=== PATIENT | female | born 1965 | race Caucasian/White ===

== ENCOUNTER 2021-04-07 19:27 | Emergency (ER) | payer BC ==
[2021-04-07 19:31] VITALS: PULSE 72; RESP 18; TEMP 98
[2021-04-07 19:32] VITALS: BP 164/94
--- NOTE | 2021-04-07 19:54 | ED ---
General Adult HPI - General Source: family Mode of arrival: ambulatory Limitations: no limitations <Rachid Michael - Last Filed: 04/07/21 20:06> <Shayla Brian - Last Filed: 04/11/21 14:37> - General Chief complaint: Recheck/Abnormal Lab/Rx Stated complaint: Covid Test Time Seen by Provider: 04/07/21 19:53 - History of Present Illness Initial comments: This a 56-year-old female presents emergency Department chief complaint of needing COVID-19 test. Patient states she is asymptomatic and needs it for travel. Patient denies any chills cough congestion has been diarrhea constipation (Rachid Michael) - Related Data Allergies Allergy/AdvReac Type Severity Reaction Status Date / Time amoxicillin Allergy Rash/Hives Verified 04/07/21 19:31 Review of Systems ROS Other: All systems not noted in ROS Statement are negative. <Rachid Michael - Last Filed: 04/07/21 20:06> ROS Other: All systems not noted in ROS Statement are negative. <Shayla Brian - Last Filed: 04/11/21 14:37> ROS Statement: Those systems with pertinent positive or pertinent negative responses have been documented in the HPI. Past Medical History Past Medical History: No Reported History History of Any Multi-Drug Resistant Organisms: None Reported Past Surgical History: No Surgical Hx Reported Past Psychological History: No Psychological Hx Reported Smoking Status: Never smoker Past Alcohol Use History: None Reported Past Drug Use History: None Reported <Rachid Michael - Last Filed: 04/07/21 20:06> General Exam Limitations: no limitations General appearance: alert, in no apparent distress Head exam: Present: atraumatic, normocephalic, normal inspection Eye exam: Present: normal appearance, PERRL, EOMI. Absent: scleral icterus, conjunctival injection, periorbital swelling Respiratory exam: Present: normal lung sounds bilaterally. Absent: respiratory distress, wheezes, rales, rhonchi, stridor Cardiovascular Exam: Present: regular rate, normal rhythm, normal heart sounds. Absent: systolic murmur, diastolic murmur, rubs, gallop, clicks <Rachid Michael - Last Filed: 04/07/21 20:06> Course Vital Signs 04/07/21 19:29 Temperature 98.0 F Pulse Rate 72 Respiratory 18 Rate Blood Pressure 164/94 O2 Sat by Pulse 97 Oximetry Medical Decision Making <Rachid Michael - Last Filed: 04/07/21 20:06> <Shayla Brian - Last Filed: 04/11/21 14:37> - Medical Decision Making Patient is asymptomatic COVID-19 test was performed return parameters were discussed. (Rachid Michael) I was available for consultation in the emergency department. The history and physical exam were done by the midlevel provider. I was consulted for this patients care. I reviewed the case with the midlevel provider and based on their presentation of the patient, I agree with the assessment, medical decision making and plan of care as documented. Chart was dictated using [employer] dictation software. Attempts were made to correct any dictation errors however some typographical errors may persist. Patient was seen during a national state of emergency due to the Covid-19 pandemic. (Shayla Brian) - Lab Data Lab Results 04/07/21 Range/Units 19:33 Coronavirus (PCR) Not Detected (Not Detectd) Disposition Is patient prescribed a controlled substance at d/c from ED?: No Time of Disposition: 19:54 <Rachid Michael - Last Filed: 04/07/21 20:06> <Shayla Brian - Last Filed: 04/11/21 14:37> Clinical Impression: Encounter for laboratory testing for COVID-19 virus Disposition: HOME SELF-CARE Condition: Stable Additional Instructions: Please return to the Emergency Department if symptoms worsen or any other concerns. Referrals: Nonstaff,Physician [Primary Care Provider] - 1-2 days
== END 2021-04-07 20:26 | disposition home or self-care (01) ==
LOC: EC 19:27
DX: Z20.822 Contact with and (suspected) exposure to COVID-19 (principal); Z88.1 Allergy status to other antibiotic agents
CPT/HCPCS: 87635; 99282

== ENCOUNTER 2021-06-14 14:09 | Emergency (ER) | payer BC ==
[2021-06-14 14:37] VITALS: BP 151/79; PULSE 80; RESP 18; TEMP 97.8
--- NOTE | 2021-06-14 14:39 | ED ---
General Adult HPI - General Chief complaint: Recheck/Abnormal Lab/Rx Stated complaint: Needs covid test Time Seen by Provider: 06/14/21 14:37 Source: patient Mode of arrival: ambulatory Limitations: no limitations - History of Present Illness Initial comments: Kimmy healthy 56-year-old female who presents the ER requesting a rapid COVID-19 test. Patient's mother lives in [place] patient [place] It is asymptomatic has no complaints and has been vaccinated. - Related Data Home Medications Medication Instructions Recorded Confirmed lisinopriL 20 mg PO DAILY 06/14/21 06/14/21 Allergies Allergy/AdvReac Type Severity Reaction Status Date / Time amoxicillin Allergy Rash/Hives Verified 06/14/21 14:36 Review of Systems ROS Statement: Those systems with pertinent positive or pertinent negative responses have been documented in the HPI. ROS Other: All systems not noted in ROS Statement are negative. Past Medical History Past Medical History: No Reported History History of Any Multi-Drug Resistant Organisms: None Reported Past Surgical History: No Surgical Hx Reported Past Psychological History: No Psychological Hx Reported Smoking Status: Never smoker Past Alcohol Use History: None Reported Past Drug Use History: None Reported General Exam - General Exam Comments Initial Comments: Physical Exam GENERAL: Patient is well-developed and well-nourished. Patient is nontoxic and well-hydrated and is in no distress. HENT: Normocephalic, Atraumatic. EYES: PERRL, EOMI PULMONARY: Unlabored respirations. CARDIOVASCULAR: RRR Warm and well perfused extremities ABDOMEN: Non-distended SKIN: No rashes or bruising : Deferred NEUROLOGIC: Alert and oriented Normal speech Normal gait MUSCULOSKELETAL: Moving all extremities with no apparent injury PSYCHIATRIC: No SI/HI Limitations: no limitations Course Vital Signs 06/14/21 14:34 Temperature 97.8 F Pulse Rate 80 Respiratory 18 Rate Blood Pressure 151/79 O2 Sat by Pulse 99 Oximetry Medical Decision Making - Medical Decision Making The patient was seen and evaluated history was obtained from patient this is a well-appearing 56-year-old requesting rapid COVID-19 testing. Test was obtained patient was discharged will be given the results to take to the [facility]. - Lab Data Lab Results 06/14/21 Range/Units 14:44 Coronavirus (PCR) Not Detected (Not Detectd) Disposition Clinical Impression: Lab test negative for COVID-19 virus Disposition: HOME SELF-CARE Condition: Stable Is patient prescribed a controlled substance at d/c from ED?: No Referrals: Nonstaff,Physician [Primary Care Provider] - 1-2 days
== END 2021-06-14 15:17 | disposition home or self-care (01) ==
LOC: EC 14:09
DX: Z20.822 Contact with and (suspected) exposure to COVID-19 (principal); Z88.0 Allergy status to penicillin
CPT/HCPCS: 87635; 99283